=== PATIENT | male | born 1985 | race Caucasian/White ===

== ENCOUNTER 2016-10-04 11:04 | Day surgery (SDC) | payer OTHER ==
[2016-10-03 16:07] VITALS: Ht 175.3 cm; Wt 69.0 kg
[2016-10-04] VITALS (20 sets, daily range): BP systolic 85–120; BP diastolic 47–73; PULSE 62–78; RESP 11–20
[~2016-10-04] VITALS: Ht 175.3 cm; Wt 69.0 kg
[~2016-10-04 11:04] MED LIST: CEFAZOLIN 1 GM INJ ONE; SEVOFLURANE 15 MIN ONE
[2016-10-04] MEDS ORDERED: SOD CHLORIDE 0.9% 1,000 ML IV SCH (12:00)
[2016-10-04] MEDS ORDERED: CEFAZOLIN 2 GM/50 ML (PMX) 50 ML IVPB ONE (12:00)
[2016-10-04] MEDS ORDERED: BUPIVACAINE 0.25% (MPF) 30 ML INJ ONE (12:52)
[2016-10-04] MEDS ORDERED: POLYMYXIN/BACITRACIN 1L IRRIG ONE (12:52)
[2016-10-04] MEDS ORDERED: LIDOCAINE 1% (MDV) 20 ML INJ ONE (13:17)
[2016-10-04] MEDS ORDERED: PROPOFOL 20 ML ONE (13:17)
[2016-10-04] MEDS ORDERED: MIDAZOLAM 1 MG/ML 2 ML INJ ONE (13:17)
[2016-10-04] MEDS ORDERED: HYDROmorphONE (0.2 MG/ML) 10ML SYG IV PRN ×2 (13:30)
[2016-10-04] MEDS ORDERED: FENTAnyl 50 MCG/ML VIAL IV PRN (13:30)
[2016-10-04] MEDS ORDERED: BACITRACIN 0.9 GM OINT ONE ×2 (13:41→13:43)
[2016-10-04] MEDS ORDERED: MUPIROCIN 2% 15 GM CR ONE (13:42)
[2016-10-04] MEDS ORDERED: ONDANSETRON 4 MG INJ ONE (13:45)
[2016-10-04] MEDS ORDERED: KETOROLAC 30 MG INJ ONE (13:46)
--- NOTE | 2016-10-04 13:55 | OPR ---
Date/Time of Note Date/Time of Note DATE: 10/04/16 TIME: 13:51 Operative Report Procedure Date: Oct 04, 2016 Preoperative Diagnosis scalp mass Postoperative Diagnosis same Operation Performed 1. scalp mass excision 2 cm mass 2 cm incision 2. localized adjacent tissue transfer with the use of skin flaps 4 sq cm defect 3. therapeutic injection of subcutaneous marcaine cpt code 29686 Surgeon: Navarro STEVENS Anesthesia Type: general Estimated Blood Loss: 0 - 10 ml's Specimens scalp mass Grafts/Implants: none Complications: no Indications This is a 31 year old male with a scalp mass. He requests surgical excision. Risks, alternatives, benefits, personnel were discussed with the patient. Patient expressed understanding and consents to the operation. Procedure Description Patient is taken to the or and prepped and draped in the usual sterile fashion. Surgical timeout is performed. IV antibiotics are given. Elliptical incision is made surrounding the scalp mass. Dissection cauterie is used to excise the mass leaving a 2 x 2 cm defect. Localized adjacent tissue transfer with the use of skin flaps is used to close the wound. Multilayer closure with 3-0 vicryl and 4-0 monocryl is performed. Therapeutic subcutaneous marcaine is injection throughout the incision. antibiotic ointment is applied. Navarro STEVENS Oct 04, 2016 13:55
[2016-10-04] MEDS ORDERED: HYDROCODONE/APAP (5/325) TAB PO ONE (14:00)
== END 2016-10-04 16:00 | disposition home or self-care (01) ==
LOC: SDS 11:04
PROVIDERS: ATTEND Surgery
DX: D23.4 Other benign neoplasm of skin of scalp and neck (principal)
CPT/HCPCS: 14020; 88307; J0690; J1885; J2250; J2405; Z7512; Z7610

== ENCOUNTER 2017-09-19 23:19 | Emergency (ER) | END 2017-09-20 02:01 | disposition left against medical advice (07) ==

== ENCOUNTER 2017-09-21 01:13 | Emergency (ER) | END 2017-09-21 08:43 | disposition home or self-care (01) ==

== ENCOUNTER 2018-06-03 13:48 | Emergency (ER) | payer BC, OTHER ==
[~2018-06-03] VITALS: Ht 175.3 cm; Wt 68.0 kg
[~2018-06-03 13:48] MED LIST changes: +ACET500C5 PO; +AZIT250T PO; -CEFAZOLIN 1 GM INJ ONE; +LOPE2CAP PO; +ONDA4TAB8 PO; -SEVOFLURANE 15 MIN ONE
[2018-06-03 13:53] VITALS: Ht 175.3 cm; Wt 68.0 kg
[2018-06-03] MEDS ORDERED: ASPIRIN 325 MG TAB PO STA (15:00)
[2018-06-03 17:07] VITALS: BP 125/75; PULSE 59; RESP 16
--- NOTE | 2018-06-03 18:26 | ERD ---
ER Documentation Chief Complaint Chief Complaint pt is bib self with c/o chest pain starting last night HPI History of Present Illness: 33-year-old male with no past medical history coming in today with complaint of left-sided chest pain that started last night. Patient reports pain as consistent, nonprogressive, tightness, discomfort, heaviness. Patient reports that upon awakening this morning pain was persistent. Patient with history of acid reflux but reports that his acid reflux usually did not does not present like the symptoms. Patient rating pain 6 of 10. Patient admits to smoking marijuana and cigarettes often. In alcohol socially. Patient denies cocaine or other illicit drug use. At home pharmacological/nonpharmacological treatment for symptoms: Denies Denies social concerns; Denies recent foreign travel ROS All systems reviewed and are negative except as per history of present illness. Medications Home Meds Active Scripts Ondansetron Hcl* (Zofran*) 4 Mg Tablet, 4 MG PO Q6H for NAUSEA AND/OR VOMITING, #30 TAB Prov:FAHAD ROSA PA-C 09/21/17 Loperamide Hcl* (Imodium*) 2 Mg Capsule, 2 MG PO .AFTER EA LOOSE BM PRN for DIARRHEA, #10 TAB Prov:MYAH,ISAIAH 09/21/17 Acetaminophen* (Tylophen*) 500 Mg Capsule, 1 CAP PO Q6H PRN for PAIN AND OR ELEVATED TEMP, #20 CAP Prov:MYAH,ISAIAH 09/21/17 Azithromycin* (Zithromax*) 250 Mg Tablet, 250 MG PO .ZPACK DIRECTED, #6 TAB TAKE 500 MG (2 TABS) THE FIRST DAY THEN 250 MG (1 TAB) DAYS 2-5 Prov:MYAH,ISAIAH 09/21/17 Allergies Allergies: Coded Allergies: No Known Allergies (Verified Allergy, Unknown, 10/03/16) PMhx/Soc History of Surgery: Yes (HEAD) Anesthesia Reaction: No Hx Neurological Disorder: No Hx Respiratory Disorders: No Hx Cardiac Disorders: No Hx Psychiatric Problems: No Hx Miscellaneous Medical Probl: Yes (SCALP MASS) Hx Alcohol Use: Yes (REPORTS OCCASIONAL USE) Hx Substance Use: Yes (REPORTS OCCASIONAL USE) Hx Tobacco Use: Yes (REPORTS OCCASIONAL USE) Smoking Status: Current some day smoker FmHx Family History: No diabetes, No coronary disease Physical Exam Vitals Physical Exam Const: No acute distress Head: Atraumatic Eyes: Normal Conjunctiva ENT: Normal External Ears, Nose and Mouth. Neck: Full range of motion. No meningismus. Resp: Clear to auscultation bilaterally Cardio: Regular rate and rhythm, no murmurs Abd: Soft, non tender, non distended. Normal bowel sounds Skin: No petechiae or rashes Back: No midline or flank tenderness Ext: No cyanosis, or edema Neur: Awake and alert Psych: Normal Mood and Affect Results 24 hrs Laboratory Tests Test 06/03/18 15:10 White Blood Count 8.4 10^3/ul Red Blood Count 4.78 10^6/ul Hemoglobin 15.3 g/dl Hematocrit 45.2 % Mean Corpuscular Volume 94.6 fl Mean Corpuscular Hemoglobin 32.0 pg Mean Corpuscular Hemoglobin Concent 33.8 g/dl Red Cell Distribution Width 13.5 % Platelet Count 205 10^3/UL Mean Platelet Volume 9.0 fl Immature Granulocytes % 0.200 % Neutrophils % 59.9 % Lymphocytes % 29.7 % Monocytes % 7.9 % Eosinophils % 1.8 % Basophils % 0.5 % Nucleated Red Blood Cells % 0.0 /100WBC Immature Granulocytes # 0.020 10^3/ul Neutrophils # 5.0 10^3/ul Lymphocytes # 2.5 10^3/ul Monocytes # 0.7 10^3/ul Eosinophils # 0.2 10^3/ul Basophils # 0.0 10^3/ul Nucleated Red Blood Cells # 0.0 10^3/ul Sodium Level 140 mmol/L Potassium Level 4.1 mmol/L Chloride Level 100 mmol/L Carbon Dioxide Level 31 mmol/L Anion Gap 9 Blood Urea Nitrogen 15 mg/dl Creatinine 0.90 mg/dl Est Glomerular Filtrat Rate mL/min > 60 mL/min Glucose Level 99 mg/dl Calcium Level 9.8 mg/dl Creatine Kinase 62 IU/L Creatine Kinase Index 0.7 Creatinine Kinase MB (Mass) 0.41 ng/ml Troponin I < 0.012 ng/ml Urine Opiates Screen Negative Urine Barbiturates Negative Urine Amphetamines Screen Negative Urine Benzodiazepines Screen Negative Urine Cocaine Screen Positive Urine Cannabinoids Positive Current Medications Medications Dose Sig/Rah Start Time Status Last (Trade) Ordered Route PRN Stop Time Admin Dose Reason Admin Aspirin 325 mg ONCE STAT 06/03/18 DC 06/03/18 (Aspirin) PO 15:00 15:09 06/03/18 15:03 Procedures/MDM ED course includes a thorough examination and history. Medications: Aspirin Imaging: Chest x-ray, EKG Labs: CBC, CMP, troponin, CK-MB, CK, UDS Low suspicion for life-threatening medical emergency. Low suspicion for STEMI, NSTEMI, pneumonia, arrhythmia. Low suspicion for cardiac emergency that requires hospitalization or immediate surgical intervention at this time. Otherwise healthy patient presenting with constellation of symptoms likely representing uncomplicated chest pain secondary to cocaine use as characterized by history, physical exam findings,, lab findings, imaging findings. CBC: no e/o of systemic infection or severe anemia. CMP: no e/o severe acidosis, alkalosis, renal failure, diabetic ketoacidosis, liver disease. Troponin, CK, CK-MB negative. Urinalysis positive for marijuana and cocaine. Chest x-ray report without any acute abnormalities. EKG @1355: Rate/Rhythm: Normal Sinus Rhythm QRS, ST, T-waves: No changes consistent w/ acute ischemia Impression: No evidence of ischemia or arrhythmia No respiratory distress, otherwise relatively well appearing and nontoxic. Patient with decreased pain after aspirin use. Patient without any cardiac arrhythmias during ER visit. Patient educated on stopping cocaine use. Patient educated on diagnoses, prescriptions, follow-up care, return precautions. Strict return precautions given for worsening condition; questions answered discharge. Disposition for discharge with followup in 2 days with PCP/clinic. Departure Diagnosis: Primary Impression: Chest pain Chest pain type: unspecified Qualified Codes: R07.9 - Chest pain, unspecified Additional Impression: Cocaine abuse Condition: Stable Patient Instructions: Cocaine: Understanding Its Effects, Chest Pain, Uncertain Cause, Drug Abuse Referrals: [facility] YOU HAVE RECEIVED A MEDICAL SCREENING EXAM AND THE RESULTS INDICATE THAT YOU DO NOT HAVE A CONDITION THAT REQUIRES URGENT TREATMENT IN THE EMERGENCY DEPARTMENT. FURTHER EVALUATION AND TREATMENT OF YOUR CONDITION CAN WAIT UNTIL YOU ARE SEEN IN YOUR DOCTORS OFFICE WITHIN THE NEXT 1-2 DAYS. IT IS YOUR RESPONSIBILITY TO MAKE AN APPOINTMENT FOR FOLOW-UP CARE. IF YOU HAVE A PRIMARY DOCTOR --you should call your primary doctor and schedule an appointment IF YOU DO NOT HAVE A PRIMARY DOCTOR YOU CAN CALL OUR PHYSICIAN REFERRAL HOTLINE AT IF YOU CAN NOT AFFORD TO SEE A PHYSICIAN YOU CAN CHOSE FROM THE FOLLOWING [facility] [address] [place] [facility] [address] [facility] [address] [facility] [address] [facility]. [facility] [address] [facility]. [facility]. [address] [facility]. [facility] YOU HAVE RECEIVED A MEDICAL SCREENING EXAM AND THE RESULTS INDICATE THAT YOU DO NOT HAVE A CONDITION THAT REQUIRES URGENT TREATMENT IN THE EMERGENCY DEPARTMENT. FURTHER EVALUATION AND TREATMENT OF YOUR CONDITION CAN WAIT UNTIL YOU ARE SEEN IN YOUR DOCTORS OFFICE WITHIN THE NEXT 1-2 DAYS. IT IS YOUR RESPONSIBILITY TO MAKE AN APPOINTMENT FOR FOLOW-UP CARE. IF YOU HAVE A PRIMARY DOCTOR --you should call your primary doctor and schedule and appointment IF YOU DO NOT HAVE A PRIMARY DOCTOR YOU CAN CALL OUR PHYSICIAN REFERRAL HOTLINE AT . IF YOU CAN NOT AFFORD TO SEE A PHYSICIAN YOU CAN CHOSE FROM THE FOLLOWING [facility] INSTITUTIONS: [facility] [address] [place] [address] [facility] [address] [place] [address] [facility] [address] [place] [address] Additional Instructions: Thank you very much for allowing us to participate in your care. Your health and safety is our top priority at [facility]. It is important to read all discharge instructions and education provided in your discharge packet. *Stop cocaine use. This can cause a life threatening heart attack* All blood tests were normal during ER visit including cardiac enzymes. Call your primary care doctor TOMORROW for an appointment during the next 2-4 days and bring all the information. If the symptoms get worse and your provider is unavailable, return to the Emergency Department immediately. MAMTA HOLLOWAY NP Jun 03, 2018 18:26
== END 2018-06-03 17:09 | disposition home or self-care (01) ==
LOC: FTE 13:48
DX: R07.9 Chest pain, unspecified (principal); F14.10 Cocaine abuse, uncomplicated; F17.210 Nicotine dependence, cigarettes, uncomplicated
CPT/HCPCS: 71045; 80048; 80307; 82550; 82553; 84484; 85025; 93005; Z7610; 36415